=== PATIENT | female | born 1980 | race Caucasian/White ===

== ENCOUNTER → 2020-02-28 | Outpatient (CLI) | payer BC, MEDICAID ==
[~2020-02-28] MED LIST: ACET325T14 PO; ALBU8.5H5 INH; ESOM20CA PO; HYDR-3653 PO; LISI-167 PO; LORA-446 PO; MULT-516 PO; POTA20TA14 PO
== END | disposition home or self-care (01) ==
LOC: CFH 09:41
PROVIDERS: ATTEND Family Medicine
DX: N13.2 Hydronephrosis with renal and ureteral calculous obstruction (principal); R31.9 Hematuria, unspecified; N13.30 Unspecified hydronephrosis
CPT/HCPCS: 74176